=== PATIENT | female | born 1950 | race Caucasian/White ===

== ENCOUNTER 2017-01-30 13:59 | Emergency (ER) | payer OTHER ==
[~2017-01-30] VITALS: Ht 165.1 cm; Wt 83.0 kg
[~2017-01-30 13:59] MED LIST: ALBUTEROL2.5 MG/0.5 INH; HYDROCODON-ACE1 EACH PO; LOPRESSOR50 M1 PO
[2017-01-30 14:30] LABS: BASO # 0.1 10*3/uL (0.0-0.1); BASO % 0.9 % (0.0-1.0); EOS # 0.2 10*3/uL (0.0-0.4); EOS % 1.9 % (1.0-4.0); HEMOGLOBIN 16.7 g/dl (12.0-16.0); IG # 0.1 10*3/uL (0.0-0.1); LYMPH # 2.3 10*3/uL (1.3-4.4); LYMPH % 18.1 % (27.0-41.0); MEAN CELL VOLUME 88.8 fl (81.0-99.0); MEAN CORPUSCULAR HGB 29.7 pg (27.0-31.0); MEAN CORPUSCULAR HGB CONC 33.4 g/dl (33.0-37.0); MEAN PLATELET VOLUME 10.6 fl (9.6-12.3); MONO # 0.7 10*3/uL (0.1-1.0); MONO % 5.8 % (3.0-9.0); NEUT % 72.7 % (47.0-73.0); PLATELET COUNT AUTOMATED 285 10*3/uL (130-400); RED BLOOD COUNT 5.63 10*6/uL (4.10-5.10); RED CELL DISTRI WIDTH 13.7 % (0-14.5); WHITE BLOOD COUNT 12.4 10*3/uL (4.8-10.8)
[2017-01-30 14:42] LABS: BILIRUBIN NEGATIVE (NEGATIVE); BLOOD NEGATIVE (NEGATIVE); CLARITY CLEAR (CLEAR); COLOR YELLOW (YELLOW); GLUCOSE NEGATIVE (NEGATIVE); KETONE NEGATIVE (NEGATIVE); LEUKO ESTERASE NEGATIVE (NEGATIVE); NITRITE NEGATIVE (NEGATIVE); PH 5.5 (5.0-9.0); PROTEIN NEGATIVE (NEGATIVE); UROBILINOGEN 0.2 E.U./dl (0.2-1.0)
[2017-01-30 14:46] LABS: ALBUMIN 3.6 gm/dl (3.1-4.5); ALKALINE PHOSPHATASE 87 U/L (45-117); BILIRUBIN, TOTAL 0.6 mg/dl (0.2-1.0); BUN 18 mg/dl (7-24); CARBON DIOXIDE 25 mmol/L (21-32); CHLORIDE 107 mmol/L (98-107); EST GLOM FILT AFRICAN AMERICAN > 60 ml/min; GLUCOSE 113 mg/dL (65-99); POTASSIUM 3.7 mmol/L (3.5-5.1); SGOT/AST 11 IU/L (3-35); SGPT/ALT 19 U/L (12-78); SODIUM 136 mmol/L (136-145); TOTAL PROTEIN 7.7 gm/dL (6.4-8.2)
[2017-01-30 14:57] LABS: BACTERIA TRACE; EPITHELIAL CELLS 0-2; URINE REFLEX COMMENT NO (NO); WBC 0-2 wbc/hpf (0-5)
[2017-01-30] MEDS ORDERED: ANUSOL-HC25 MG R (15:41)
== END 2017-01-30 15:45 | disposition home or self-care (01) ==
LOC: ED 13:59
PROVIDERS: Nurse Practitioner Family
DX: K64.9 Unspecified hemorrhoids (principal); F17.200 Nicotine dependence, unspecified, uncomplicated; Z88.0 Allergy status to penicillin; Z90.49 Acquired absence of other specified parts of digestive tract

== ENCOUNTER → 2017-07-26 | Outpatient (CLI) | payer OTHER ==
[~2017-07-26] MED LIST changes: +ANUSOL-HC25 MG R
== END | disposition home or self-care (01) ==
LOC: US 09:48
DX: K76.0 Fatty (change of) liver, not elsewhere classified (principal); K80.20 Calculus of gallbladder without cholecystitis without obstruction; I71.4 Abdominal aortic aneurysm, without rupture

== ENCOUNTER → 2017-08-28 | Day surgery (SDC) | payer OTHER ==
[2017-08-25 10:39] LABS: BASO # 0.1 10*3/uL (0.0-0.1); BASO % 1.1 % (0.0-1.0); EOS # 0.3 10*3/uL (0.0-0.4); HEMATOCRIT 49.8 % (37.0-47.0); HEMOGLOBIN 16.2 g/dl (12.0-16.0); LYMPH # 1.9 10*3/uL (1.3-4.4); LYMPH % 23.5 % (27.0-41.0); MEAN CELL VOLUME 90.4 fl (81.0-99.0); MEAN CORPUSCULAR HGB 29.4 pg (27.0-31.0); MEAN CORPUSCULAR HGB CONC 32.5 g/dl (33.0-37.0); MONO # 0.6 10*3/uL (0.1-1.0); MONO % 7.5 % (3.0-9.0); NEUT # 5.3 10*3/uL (2.3-7.9); NEUT % 64.4 % (47.0-73.0); PLATELET COUNT AUTOMATED 216 10*3/uL (130-400); RED BLOOD COUNT 5.51 10*6/uL (4.10-5.10); RED CELL DISTRI WIDTH 12.6 % (0-14.5); WHITE BLOOD COUNT 8.3 10*3/uL (4.8-10.8)
[2017-08-25 10:51] LABS: BILIRUBIN NEGATIVE (NEGATIVE); BLOOD NEGATIVE (NEGATIVE); CLARITY CLEAR (CLEAR); COLOR YELLOW (YELLOW); GLUCOSE NEGATIVE (NEGATIVE); KETONE NEGATIVE (NEGATIVE); LEUKO ESTERASE NEGATIVE (NEGATIVE); NITRITE NEGATIVE (NEGATIVE); PH 5.5 (5.0-9.0); UROBILINOGEN 0.2 E.U./dl (0.2-1.0)
[2017-08-25 11:13] LABS: CHLORIDE 106 mmol/L (98-107); POTASSIUM 4.3 mmol/L (3.5-5.1); SODIUM 138 mmol/L (136-145)
[2017-08-25 11:17] LABS: ACT PARTIAL THROMBO TIME 25.1 SECONDS (20.8-31.5)
[2017-08-25 11:28] LABS: ALBUMIN 3.5 gm/dl (3.1-4.5); ALKALINE PHOSPHATASE 87 U/L (45-117); BILIRUBIN, DIRECT 0.1 mg/dL (0.0-0.2); BUN 8 mg/dl (7-24); CREATININE 0.59 mg/dL (0.55-1.02); SGOT/AST 13 IU/L (3-35); SGPT/ALT 12 U/L (12-78); TOTAL PROTEIN 7.4 gm/dL (6.4-8.2)
[2017-08-28] VITALS (7 sets, daily range): BP systolic 118–157; BP diastolic 58–88
[~2017-08-28] VITALS: Ht 162.5 cm; Wt 86.6 kg
[~2017-08-28] MED LIST changes: +AMLODIPINE BESYL5 MG PO; +NORCO 5-325 TA1 EACH PO; +NORCO 7.5-3251 EACH PO; +TOPROL XL100 MG PO
--- NOTE | ~2017-08-28 | O ---
[place], [place] OPERATIVE NOTE NAME: [id number] UNIT #: [id number] ROOM: DOCTOR: BRETT PATEL MD BIRTHDATE: [birth year] DOS: 08/28/2017 PREOPERATIVE DIAGNOSIS: Symptomatic gallstones. POSTOPERATIVE DIAGNOSIS: Symptomatic gallstones. PROCEDURE: Laparoscopic cholecystectomy. SURGEON: Brett Patel MD TRANSIT MAN: DONAL. ANESTHESIA: General with endotracheal intubation. INDICATIONS: This is a 66-year-old lady who is here for the above-mentioned procedure for symptomatic gallstones. The procedure and its complications were explained to the patient in detail preoperatively. Complications that were discussed included but were not limited to bleeding, infection, hematoma/seroma/abscess formation, prolonged postoperative pain, damage to underlying vital structures, inadvertent injury to the common bile duct, biloma formation, incisional hernia formation and hematoma formation. She agreed to proceed. DESCRIPTION OF PROCEDURE: After identifying the patient, the patient was brought to the operating suite and laid in the supine position. After induction of general anesthesia, the parts were then painted and draped in the usual sterile fashion and a timeout procedure was called and an incision below the umbilicus in a transverse fashion was made. The skin and the subcutaneous tissue were incised in the line of the incision. The fascia was grasped and incised vertically and 2 stay sutures with 0 Vicryl were taken. The peritoneum was entered and a 12 mm Nyla port was introduced. A pneumoperitoneum was created. Under direct vision, an epigastric incision of 10 mm and two 5 mm incisions were made in the right upper quadrant and appropriate size ports were introduced. The gallbladder was retracted superiorly and laterally. The cystic duct and the cystic artery were meticulously dissected until the critical view of safety was obtained. Each of these structures were then clipped 3 times and cut between the first and the second clip. The gallbladder was then removed from the bed of the gallbladder with the help of electrocautery and sent for histopathological diagnosis after it was removed from the peritoneal cavity with the help of a bag. Hemostasis was achieved with the help of electrocautery. Additional hemostasis was achieved by putting in a stripe of Surgicel in the liver bed. After hemostasis was confirmed, saline was used for irrigation and this was sucked away. Hemostasis was confirmed again. Thereafter, the right upper quadrant and the epigastric ports were removed and there was no bleeding seen. The umbilical port was removed and additional sutures were taken with 0 Vicryl to close the fascia. The stay sutures were tied together as well. The edges of the skin were infiltrated with 1% plain lidocaine and were approximated with the help of 4-0 Vicryl in a subcuticular running fashion. Dressings were placed in all the 4 incisions. There were no complications. Dr. Brett Patel, the attending surgeon, was present throughout the operating case. The patient [place], [place] OPERATIVE NOTE NAME: TA DOLL UNIT #: [id number] ROOM: DOCTOR: BRETT PATEL MD BIRTHDATE: [birth year] is extubated uneventfully and brought back to the recovery room in a stable fashion. Brett Patel MD CM:OPRECORD:OPERATIVE NOTE [id number] BRETT PATEL MD 08/28/17 0910 interface
== END ==
LOC: SDC 08-25 08:45
PROVIDERS: Surgery
DX: K80.10 Calculus of gallbladder with chronic cholecystitis without obstruction (principal); I10 Essential (primary) hypertension; K21.9 Gastro-esophageal reflux disease without esophagitis; F17.210 Nicotine dependence, cigarettes, uncomplicated; Z79.899 Other long term (current) drug therapy; Z90.710 Acquired absence of both cervix and uterus

== ENCOUNTER 2017-09-01 08:11 | Inpatient (IN) | payer OTHER ==
[~2017-09-01] VITALS: Ht 165.1 cm; Wt 86.8 kg
--- NOTE | ~2017-09-01 | WRIGHTHP ---
[place], [place] PATIENT HISTORY AND PHYSICAL EXAM NAME: TA DOLL [facility] #: [id number] UNIT #: [id number] ROOM: 426 DOCTOR: RASHAD LEO MD BIRTHDATE: [birth year] DOS: HISTORY OF PRESENT ILLNESS: A 66-year-old female with a past medical history of; 1. Cholecystectomy on August 28, 5 days ago, performed laparoscopically. 2. History of benign essential hypertension. 3. Rheumatic heart disease history and mitral valve prolapse. 4. GERD and esophagitis. The patient presented to the Emergency Department with right upper quadrant abdominal pain starting yesterday. The patient had done well after a laparoscopic cholecystectomy, but then she developed nausea and right upper quadrant pains and she came to the Emergency Department. The patient had chills and was sweaty. No vomiting, no diarrhea or constipation. No chest pain, no shortness of breath except for patient wears oxygen chronically for COPD and she is a smoker. REVIEW OF SYSTEMS: LUNGS: No increasing shortness of breath. GASTROINTESTINAL: The patient with nausea. CARDIOVASCULAR: No chest pain or palpitations. FAMILY HISTORY: Noncontributory. SOCIAL HISTORY: The patient smokes 1 pack of cigarettes a day for about 55 years. Denies any drug or alcohol abuse. HOME MEDICATIONS: The patient takes amlodipine 5 mg a day, metoprolol 100 mg b.i.d. at home and Vicodin as needed. ALLERGIES: KNOWN ALLERGIES TO PENICILLIN according to patient's records. PHYSICAL EXAMINATION: GENERAL: Alert and oriented x 3, in no visible distress, moderately obese. GASTROINTESTINAL: She has some abdominal distention and abdominal discomfort all over with right upper quadrant tenderness. No rigidity, guarding or rebound tenderness. No signs of peritonitis. LABORATORY DATA: Ultrasound of the liver showing no biliary dilatation and diffuse hepatic steatosis. CT scan of the abdomen showing cholecystectomy, possible seroma versus abscess, biliary ductal dilatation with a non-radiopaque stone measuring up to 8 mm, severe hepatomegaly. Chest x-ray showing COPD. White cell count elevated to 15,000, albumin level low at 2.8. IMPRESSION: 1. The patient is presenting with possible abscess at the site of cholecystectomy 5 days earlier with leukocytosis and right upper quadrant pains which have been controlled with antibiotics and intravenous Dilaudid. The pain has slightly improved today as compared to yesterday. There is no liver enzyme elevation except for some elevation of bilirubin to 1.9. Dr. Patel, this [place], [place] PATIENT HISTORY AND PHYSICAL EXAM NAME: TA DOLL UNIT #: [id number] ROOM: 426 DOCTOR: AHMET DESOUZA,RASHAD Day BIRTHDATE: [birth year] surgeon is on consult and he is recommending observation and following blood count for now. The patient is refusing gastrointestinal consult with Dr. Medrano. I will consult with infectious disease specialist for their opinion and help with management. 2. Advanced centrilobular emphysema with chronic respiratory failure and oxygen dependence. We will keep the patient on bronchodilators, oxygen and watch her closely. The patient is ambulating to the bathroom. 3. Leukocytosis, which is postop. We will watch for white cell counts either coming down or going up with intravenous antibiotics. 4. The patient has recorded ALLERGIES TO PENICILLIN, but she has not shown any adverse reaction to piperacillin given by Dr. Patel to this patient. I will make Dr. Patel aware of this issue about her recorded ALLERGY TO PENICILLIN in the past and discussed it with the patient's nurse. 5. Benign essential hypertension with controlled blood pressures. The patient remains on amlodipine and metoprolol. RASHAD LEO MD CM:HISPHYS:PATIENT HISTORY AND PHYSICAL EXAMINATION [id number] RASHAD LEO MD 09/02/17 2002 interface
--- NOTE | ~2017-09-01 | EKG ---
[place], [place] ELECTROCARDIOGRAM REPORT NAME: TA DOLL UNIT #: [id number] ROOM: 426 DOCTOR: MATTIE DESOUZA,ANAM BIRTHDATE: [birth year] DOS: 09/01/2017 TIME: 8:35 a.m. IMPRESSION: 1. Sinus rhythm. 2. Left axis deviation. 3. Poor R-wave progression. ANAM PHELPS MD CM:EKGRPT:ELECTROCARDIOGRAM REPORT [id number] ANAM PHELPS MD
--- NOTE | ~2017-09-01 | PR ---
[place], [place] PROGRESS NOTE NAME: TA DOLL UNIT #: [id number] ROOM: 426 DOCTOR: RASHAD LEO MD BIRTHDATE: [birth year] DOS: 09/03/2017 SUBJECTIVE: The patient is feeling much better, says she is hardly requiring pain medication anymore. OBJECTIVE: GENERAL APPEARANCE: The patient is alert and oriented x 3, in no visible distress. VITAL SIGNS: Blood pressure 152/95, heart rate 63 beats per minute, breathing 20 times per minute, temperature 98.4 degrees Fahrenheit. HEENT AND NECK: Exam within normal limits. CARDIOVASCULAR SYSTEM: Heart rate is regular in rate and rhythm. S1 and S2 normally audible. LUNGS: Clear to auscultation. ABDOMEN: Soft, nontender. No obvious organomegaly. Bowel sounds are present. EXTREMITIES: Without significant cyanosis or edema. IMPRESSION: 1. The patient with acute right upper quadrant pains 5 days after cholecystectomy with abscess, suspected on CT scan of the abdomen and leukocytosis with criteria of sepsis which included leukocytosis, chills, rigors, pain is all improving. The patient's nausea is also getting better. 2. Advanced centrilobular emphysema and chronic respiratory failure with oxygen dependence. The patient on bronchodilators. 3. Postoperative leukocytosis and related to sepsis. White cell counts are still staying around 14-15,000 despite of use of antibiotics. ID consult is pending. 4. Benign essential hypertension with controlled blood pressures. RASHAD LEO MD CM:PNTRANS [id number] RASHAD LEO MD 09/03/17 1024 interface
[~2017-09-01 08:11] MED LIST changes: -NORCO 7.5-3251 EACH PO; -TOPROL XL100 MG PO
[2017-09-01 08:15] VITALS: BP 123/82
[2017-09-01] MEDS ORDERED: NORCO 7.5-3251 EACH PO (08:21)
[2017-09-01 08:57] LABS: BASO # 0.1 10*3/uL (0.0-0.1); BASO % 0.9 % (0.0-1.0); EOS # 0.3 10*3/uL (0.0-0.4); EOS % 1.7 % (1.0-4.0); HEMATOCRIT 51.8 % (37.0-47.0); HEMOGLOBIN 16.9 g/dl (12.0-16.0); LYMPH # 1.9 10*3/uL (1.3-4.4); LYMPH % 13.1 % (27.0-41.0); MEAN CELL VOLUME 90.4 fl (81.0-99.0); MEAN CORPUSCULAR HGB 29.5 pg (27.0-31.0); MEAN CORPUSCULAR HGB CONC 32.6 g/dl (33.0-37.0); MEAN PLATELET VOLUME 11.2 fl (9.6-12.3); MONO # 1.1 10*3/uL (0.1-1.0); MONO % 7.6 % (3.0-9.0); NEUT # 11.3 10*3/uL (2.3-7.9); NEUT % 75.9 % (47.0-73.0); PLATELET COUNT AUTOMATED 222 10*3/uL (130-400); RED BLOOD COUNT 5.73 10*6/uL (4.10-5.10); RED CELL DISTRI WIDTH 12.5 % (0-14.5); WHITE BLOOD COUNT 14.8 10*3/uL (4.8-10.8)
--- NOTE | 2017-09-01 09:03 | NUR ---
PATIENT ADVISED URINE SAMPLE IS REQUESTED.
[2017-09-01 09:13] LABS: ALBUMIN 3.3 gm/dl (3.1-4.5); ALKALINE PHOSPHATASE 95 U/L (45-117); BUN 10 mg/dl (7-24); CHLORIDE 101 mmol/L (98-107); CREATININE 0.72 mg/dL (0.55-1.02); LIPASE 61 U/L (73-393); POTASSIUM 4.2 mmol/L (3.5-5.1); SGOT/AST 11 IU/L (3-35); SGPT/ALT 18 U/L (12-78); SODIUM 135 mmol/L (136-145); TOTAL PROTEIN 7.6 gm/dL (6.4-8.2)
[2017-09-01 09:14] LABS: TROPONIN I < 0.015 ng/ml (<0.045)
--- NOTE | 2017-09-01 09:26 | NUR ---
PATIENT TO CT AT THIS TIME.
--- NOTE | 2017-09-01 09:47 | NUR ---
PATIENT COMPLAINING OF INCREASED PAIN.
--- NOTE | 2017-09-01 09:59 | NUR ---
PATIENT MEDICATED FOR PAIN. REPORTS 07/08 AT THIS TIME.
[2017-09-01 11:28] VITALS: BP 132/76
[2017-09-01 12:00] VITALS: BP 144/72
[2017-09-01] MEDS ORDERED: TOPROL XL100 MG PO (12:15)
--- NOTE | 2017-09-01 12:36 | NUR ---
MSADMTime: N A 66 year old admitted to 4E under services of DR. AHMET DESOUZA,RASHAD Hernandez Pt. arrived via bed from ER. Chief complaint: ABDOMINAL PAIN. AUSTEN SOLANO
--- NOTE | 2017-09-01 14:51 | NUR ---
NORCO GIVEN FOR C/O ABDOMINAL PAIN. RATES 6/10 ON PAIN SCALE. WILL MONITOR.
[2017-09-01 16:00] VITALS: BP 153/88
--- NOTE | 2017-09-01 16:00 | NUR ---
NORCO NOT HELPING PER PT. WILL NOTIFY DOCTOR.
--- NOTE | 2017-09-01 16:43 | NUR ---
DILAUDID GIVEN FOR C/O ABDOMINAL PAIN. RATES 10/10 ON PAIN SCALE. WILL MONITOR.
--- NOTE | 2017-09-01 17:50 | NUR ---
ROLO HELPING PER PT.
[2017-09-01 20:00] VITALS: BP 127/103
[2017-09-01 21:58] LABS: BILIRUBIN NEGATIVE (NEGATIVE); BLOOD TRACE-INTACT (NEGATIVE); CLARITY SL CLOUDY (CLEAR); COLOR YELLOW (YELLOW); GLUCOSE NEGATIVE (NEGATIVE); KETONE NEGATIVE (NEGATIVE); LEUKO ESTERASE NEGATIVE (NEGATIVE); NITRITE NEGATIVE (NEGATIVE); PH 5.5 (5.0-9.0); UROBILINOGEN 0.2 E.U./dl (0.2-1.0)
[2017-09-01 22:10] LABS: BACTERIA TRACE; RBC 0-2 rbc/hpf (0-2); WBC 0-2 wbc/hpf (0-5)
[2017-09-01 22:50] VITALS: BP 133/84
--- NOTE | 2017-09-01 23:30 | NUR ---
PRN PAIN MED EFFECTIVE FOR PAIN RELIEF. PT RESTING QUIETLY IN BED AT THIS TIME.
[2017-09-02] VITALS: BP 131/91
--- NOTE | 2017-09-02 05:05 | NUR ---
24 HR chart check completed.
[2017-09-02 06:46] LABS: BASO # 0.1 10*3/uL (0.0-0.1); BASO % 0.4 % (0.0-1.0); EOS # 0.1 10*3/uL (0.0-0.4); EOS % 0.5 % (1.0-4.0); HEMOGLOBIN 15.7 g/dl (12.0-16.0); LYMPH # 1.1 10*3/uL (1.3-4.4); LYMPH % 7.1 % (27.0-41.0); MEAN CELL VOLUME 90.4 fl (81.0-99.0); MEAN CORPUSCULAR HGB 30.2 pg (27.0-31.0); MEAN CORPUSCULAR HGB CONC 33.4 g/dl (33.0-37.0); MEAN PLATELET VOLUME 10.8 fl (9.6-12.3); MONO # 1.1 10*3/uL (0.1-1.0); MONO % 7.4 % (3.0-9.0); NEUT # 12.7 10*3/uL (2.3-7.9); NEUT % 84.1 % (47.0-73.0); PLATELET COUNT AUTOMATED 210 10*3/uL (130-400); RED CELL DISTRI WIDTH 12.5 % (0-14.5); WHITE BLOOD COUNT 15.1 10*3/uL (4.8-10.8)
[2017-09-02 07:02] LABS: ALBUMIN 2.8 gm/dl (3.1-4.5); ALKALINE PHOSPHATASE 93 U/L (45-117); BUN 9 mg/dl (7-24); CHLORIDE 101 mmol/L (98-107); CREATININE 0.54 mg/dL (0.55-1.02); POTASSIUM 4.3 mmol/L (3.5-5.1); SGOT/AST 24 IU/L (3-35); SGPT/ALT 27 U/L (12-78); SODIUM 136 mmol/L (136-145); TOTAL PROTEIN 6.7 gm/dL (6.4-8.2)
[2017-09-02 08:00] VITALS: BP 122/79
--- NOTE | 2017-09-02 08:30 | NUR ---
Disability Representative in to talk to patient. Patient states lives at HOME ALONE with . There are 17 steps in the home. Physician: DR CABEZAS Pharmacy: [facility] services: NONE Patient's level of ADLs: INDEPENDENT Patient has working utilities: YES DME: [facility] Follow-up physician's appointment after d/c: PREFERS TO MAKE HER OWN APPT Does patient want to access PORTAL?: Discharge plan HOME. CHRIS PARRA
--- NOTE | 2017-09-02 08:45 | NUR ---
PT. CURRENTLY RESTING IN BED WATCHING TV WITH NO C/O OR DISTRESS NOTED AT THIS TIME. BED IS LOW, WHEELS ARE LOCKED, CALL LIGHT IN REACH AND HOB ELEVATED. [place] ATTACHED DELIVERING 2L, ECCYMOSIS NOTED TO AREAS OF LAPROSCOPIC ANTIONE. NO DRAINAGE NOTED. SEE SHIFT ASSESSMENT.
[2017-09-02 12:00] VITALS: BP 127/78
--- NOTE | 2017-09-02 12:34 | NUR ---
PRN DILAUDID GIVEN FOR PT. C/O RUQ ABDOMINAL PAIN, WILL MONITOR EFFECT.
--- NOTE | 2017-09-02 13:00 | NUR ---
PRN DILAUDID EFFECTIVE PER PT. CALL LIGHT IS WITHIN REACH AND RESPERS ARE EASY AND REGULAR.
--- NOTE | 2017-09-02 14:04 | NUR ---
DR. ALSTON CONTACTED IN REGARDS TO PT. US OF GALLBLADDER RESULTS, NO NEW ORDERS.
[2017-09-02 16:00] VITALS: BP 130/77
[2017-09-02 20:00] VITALS: BP 141/90
--- NOTE | 2017-09-02 20:01 | NUR ---
MEDICATED WITH PRN DILAUDID FOR C/O RLQ ABDOMINAL PAIN. RATES 03/08. WILL MONITOR FOR EFFECTIVENESS.
--- NOTE | 2017-09-02 21:45 | NUR ---
PER PATIENT, EARLIER DILAUDID EFFECTIVE
[2017-09-03] VITALS: BP 145/91
--- NOTE | 2017-09-03 02:02 | NUR ---
MEDICATED WITH PRN DILAUDID FOR C/O ABDOMINAL PAIN. RATES 04/07.
--- NOTE | 2017-09-03 03:09 | NUR ---
EARLIER DILAUDID APPEARS TO BE EFFECTIVE, PT SLEEPING. NO SIGNS OF DISTRESS NOTED. CM INTACT. CALL LIGHT IN REACH. WILL CONTINUE TO MONITOR.
[2017-09-03 06:57] LABS: BASO # 0.1 10*3/uL (0.0-0.1); BASO % 0.5 % (0.0-1.0); EOS # 0.1 10*3/uL (0.0-0.4); EOS % 0.6 % (1.0-4.0); LYMPH # 0.9 10*3/uL (1.3-4.4); MEAN CELL VOLUME 89.7 fl (81.0-99.0); MEAN CORPUSCULAR HGB 30.3 pg (27.0-31.0); MEAN CORPUSCULAR HGB CONC 33.8 g/dl (33.0-37.0); MEAN PLATELET VOLUME 11.2 fl (9.6-12.3); MONO # 0.9 10*3/uL (0.1-1.0); MONO % 6.1 % (3.0-9.0); NEUT # 12.7 10*3/uL (2.3-7.9); NEUT % 86.1 % (47.0-73.0); PLATELET COUNT AUTOMATED 250 10*3/uL (130-400); RED BLOOD COUNT 5.94 10*6/uL (4.10-5.10); RED CELL DISTRI WIDTH 12.3 % (0-14.5); WHITE BLOOD COUNT 14.7 10*3/uL (4.8-10.8)
[2017-09-03 07:00] LABS: BUN 12 mg/dl (7-24); CHLORIDE 98 mmol/L (98-107); CREATININE 0.62 mg/dL (0.55-1.02); POTASSIUM 4.2 mmol/L (3.5-5.1); SODIUM 134 mmol/L (136-145)
[2017-09-03 07:01] LABS: HEMATOCRIT 53.3 % (37.0-47.0)
[2017-09-03 08:00] VITALS: BP 152/95
[2017-09-03 08:14] LABS: SGOT/AST 22 IU/L (3-35); SGPT/ALT 28 U/L (12-78)
[2017-09-03 09:38] LABS: BILIRUBIN, DIRECT 0.9 mg/dL (0.0-0.2)
[2017-09-03 12:00] VITALS: BP 132/81
[2017-09-03 16:00] VITALS: BP 132/92
--- NOTE | 2017-09-03 16:51 | NUR ---
MIXER CRANE OPERATOR PHONED ONE CALL ALLEGHENY TO CHECK ON A BED FOR TRANSFER WITH ONE NOT AVAILABLE YET.
--- NOTE | 2017-09-03 17:09 | NUR ---
PT MEDICATED AT THIS TIME WITH PRN DILAUDID FOR C/O RIGHT SIDED ABDOMINAL PAIN. PT RATES PAIN 05/08. WILL REACCESS.
[2017-09-03 20:00] VITALS: BP 131/94
--- NOTE | 2017-09-03 22:21 | NUR ---
MEDICATED WITH PRN NORCO ORDERED FOR C/O ABDOMINAL PAIN RATED AN 8
--- NOTE | 2017-09-03 22:30 | NUR ---
NURSE TO NURSE REPORT GIVEN TO [facility] AT THIS TIME. PATIENT DISCHARGED AND LEFT VIA AMBULANCE. IV HEP LOCKED WITH NS. HEART MONITOR REMOVED AND RETURNED TO FLOOR. PATIENT VERBALIZED UNDERSTANDING OF TRANSFER INSTRUCTIONS.
== END 2017-09-03 22:30 | disposition short-term general hospital (02) | DRG 862 ==
LOC: ED 08:11 → 4E 11:19 → EDHOLD 11:19 → 4E 11:25
PROVIDERS: Emergency Medicine; Surgery; ADMIT Internal Medicine
DX: T81.4XXA Infection following a procedure, initial encounter (principal); A41.9 Sepsis, unspecified organism; J96.10 Chronic respiratory failure, unspecified whether with hypoxia or hypercapnia; J43.2 Centrilobular emphysema; Z99.81 Dependence on supplemental oxygen; L02.211 Cutaneous abscess of abdominal wall; F17.210 Nicotine dependence, cigarettes, uncomplicated; I10 Essential (primary) hypertension; Y83.6 Removal of other organ (partial) (total) as the cause of abnormal reaction of the patient, or of later complication, without mention of misadventure at the time of the procedure; K21.0 Gastro-esophageal reflux disease with esophagitis; K59.00 Constipation, unspecified; Z90.49 Acquired absence of other specified parts of digestive tract; Z79.899 Other long term (current) drug therapy; Z88.0 Allergy status to penicillin; Y92.89 Other specified places as the place of occurrence of the external cause

== ENCOUNTER → 2017-10-24 | Outpatient (CLI) | payer OTHER ==
[~2017-10-24] MED LIST changes: +NORCO 7.5-3251 EACH PO; +TOPROL XL100 MG PO
== END | disposition home or self-care (01) ==
LOC: CT 00:57
DX: R10.33 Periumbilical pain (principal); R18.8 Other ascites; R11.0 Nausea; Z90.49 Acquired absence of other specified parts of digestive tract

== ENCOUNTER → 2018-02-11 | Outpatient (CLI) | payer OTHER ==
[2018-02-11 13:31] LABS: CREATININE 0.73 mg/dL (0.55-1.02)
== END ==
LOC: LAB 12:41 → MRI 12:41
PROVIDERS: Radiology Diagnostic Radiology
DX: R51 Headache (principal); R42 Dizziness and giddiness; H53.8 Other visual disturbances; H91.93 Unspecified hearing loss, bilateral

== ENCOUNTER → 2018-04-08 | Outpatient (CLI) | payer OTHER ==
--- NOTE | ~2018-04-08 | HM ---
[place], [place] HOLTER MONITOR REPORT NAME: TA DOLL UNIT #: [id number] ROOM: DOCTOR: JAY CABEZAS MD BIRTHDATE: [birth year] DOS: 04/08/2018 REASON: Testing for evaluation of previous history of AFib. The patient remained in sinus rhythm with average heart rate of 74. Maximum heart rate was 105. The patient's rhythm was mostly sinus though occasional bradycardia, heart rate in the 40s, only ventricular ectopy noted was couplets and PVCs. Supraventricular activity was mostly PACs, no AFib was seen. JAY CABEZAS MD CM:HOLTER:HOLTER MONITOR REPORT [id number] JAY CABEZAS MD
== END | disposition home or self-care (01) ==
LOC: CARD 09:00
DX: I48.91 Unspecified atrial fibrillation (principal); R06.02 Shortness of breath

== ENCOUNTER → 2018-12-22 | Outpatient (CLI) | payer OTHER | END | disposition home or self-care (01) | LOC: CT 12-15 08:00 | DX: J43.9 Emphysema, unspecified (principal); I71.4 Abdominal aortic aneurysm, without rupture; J38.3 Other diseases of vocal cords; Z90.49 Acquired absence of other specified parts of digestive tract ==

== ENCOUNTER → 2019-05-13 | Outpatient (CLI) | payer OTHER | END | disposition home or self-care (01) | LOC: CT 12:20 | DX: I71.4 Abdominal aortic aneurysm, without rupture (principal); I72.2 Aneurysm of renal artery; N20.0 Calculus of kidney; K76.89 Other specified diseases of liver; R19.7 Diarrhea, unspecified; I70.90 Unspecified atherosclerosis ==

== ENCOUNTER → 2019-09-03 | Outpatient (CLI) | payer OTHER | END | disposition home or self-care (01) | LOC: RAD 07:54 | DX: M25.512 Pain in left shoulder (principal) ==

== ENCOUNTER → 2019-12-06 | Outpatient (CLI) | payer OTHER | END | disposition home or self-care (01) | LOC: CT 08:18 | DX: I71.9 Aortic aneurysm of unspecified site, without rupture (principal) ==

== ENCOUNTER → 2020-03-02 | Outpatient (CLI) | payer OTHER ==
[2020-03-02 13:47] LABS: BASO # 0.1 10*3/uL (0.0-0.1); BASO % 0.9 % (0.0-1.0); EOS # 0.4 10*3/uL (0.0-0.4); EOS % 3.2 % (1.0-4.0); HEMATOCRIT 51.8 % (37.0-47.0); LYMPH % 15.8 % (27.0-41.0); MEAN CORPUSCULAR HGB 29.8 pg (27.0-31.0); MEAN CORPUSCULAR HGB CONC 31.7 g/dl (33.0-37.0); MONO # 1.1 10*3/uL (0.1-1.0); MONO % 9.2 % (3.0-9.0); NEUT # 8.7 10*3/uL (2.3-7.9); NEUT % 70.1 % (47.0-73.0); PLATELET COUNT AUTOMATED 241 10*3/uL (130-400); RED BLOOD COUNT 5.51 10*6/uL (4.10-5.10); RED CELL DISTRI WIDTH 12.7 % (0-14.5); WHITE BLOOD COUNT 12.3 10*3/uL (4.8-10.8)
[2020-03-02 14:22] LABS: CHLORIDE 104 mmol/L (98-107); POTASSIUM 4.5 mmol/L (3.5-5.1); SODIUM 137 mmol/L (136-145)
[2020-03-02 14:28] LABS: VITAMIN D, 25-HYDROXY 42.3 ng/mL (30-100)
[2020-03-02 14:32] LABS: ALBUMIN 3.6 gm/dl (3.1-4.5); ALKALINE PHOSPHATASE 97 U/L (45-117); BUN 15 mg/dl (7-24); CHOLESTEROL 153 mg/dL (<200); FREE T4 1.13 ng/dl (0.76-1.46); HDL CHOLESTEROL 56 mg/dl (40-60); LDL CHOLESTEROL 82 mg/dL (9-159); SGOT/AST 12 IU/L (3-35); SGPT/ALT 20 U/L (12-78); TOTAL PROTEIN 7.5 gm/dL (6.4-8.2); TRIGLYCERIDES 77 mg/dl (<150); VLDL CHOLESTEROL 15 mg/dL (6-40)
== END | disposition home or self-care (01) ==
LOC: LAB 12:46 → RAD 13:30 → MAMMO 14:00
PROVIDERS: Internal Medicine
DX: Z12.31 Encounter for screening mammogram for malignant neoplasm of breast (principal); Z00.00 Encounter for general adult medical examination without abnormal findings; M85.89 Other specified disorders of bone density and structure, multiple sites; E78.2 Mixed hyperlipidemia; I10 Essential (primary) hypertension; E55.9 Vitamin D deficiency, unspecified; Z78.0 Asymptomatic menopausal state

== ENCOUNTER → 2020-07-14 | Outpatient (CLI) | payer OTHER | END | disposition home or self-care (01) | LOC: LAB 08:13 | PROVIDERS: ATTEND Internal Medicine Critical Care Medicine | DX: R53.83 Other fatigue (principal); D64.9 Anemia, unspecified ==

== ENCOUNTER → 2020-11-06 | Outpatient (CLI) | payer OTHER | END | disposition home or self-care (01) | LOC: RAD 08:03 | PROVIDERS: ATTEND Internal Medicine | DX: R06.02 Shortness of breath (principal) ==

== ENCOUNTER → 2021-01-11 | Outpatient (CLI) | payer OTHER | END | disposition home or self-care (01) | LOC: US 01-08 11:00 | PROVIDERS: ATTEND Internal Medicine | DX: R42 Dizziness and giddiness (principal) ==

== ENCOUNTER → 2021-02-14 | Outpatient (CLI) | payer OTHER | END | disposition home or self-care (01) | LOC: RAD 07:55 | PROVIDERS: ATTEND Internal Medicine | DX: M19.071 Primary osteoarthritis, right ankle and foot (principal); M25.871 Other specified joint disorders, right ankle and foot ==

== ENCOUNTER → 2021-03-05 | Outpatient (CLI) | payer OTHER | END | disposition home or self-care (01) | LOC: MRI 10:41 | PROVIDERS: ATTEND Internal Medicine | DX: S96.811A Strain of other specified muscles and tendons at ankle and foot level, right foot, initial encounter (principal); M20.11 Hallux valgus (acquired), right foot; M19.071 Primary osteoarthritis, right ankle and foot; M72.2 Plantar fascial fibromatosis; R60.0 Localized edema; X58.XXXA Exposure to other specified factors, initial encounter; Y93.89 Activity, other specified; Y92.89 Other specified places as the place of occurrence of the external cause; Y99.8 Other external cause status ==

== ENCOUNTER → 2021-04-18 | Outpatient (CLI) | payer OTHER | END | disposition home or self-care (01) | LOC: US 11:50 | PROVIDERS: ATTEND Internal Medicine | DX: I70.0 Atherosclerosis of aorta (principal); Q25.46 Tortuous aortic arch; R60.0 Localized edema ==

== ENCOUNTER → 2021-08-21 | Outpatient (CLI) | payer OTHER | END | disposition home or self-care (01) | LOC: CARD 08-07 14:00 → CT 08-07 15:00 → CARD 12:23 | PROVIDERS: ATTEND Internal Medicine | DX: R06.02 Shortness of breath (principal) ==

== ENCOUNTER → 2021-12-31 | Outpatient (CLI) | payer OTHER | END | disposition home or self-care (01) | LOC: RAD 08:57 → MAMMO 09:30 | PROVIDERS: ATTEND Internal Medicine | DX: Z12.31 Encounter for screening mammogram for malignant neoplasm of breast (principal); M81.0 Age-related osteoporosis without current pathological fracture; M85.88 Other specified disorders of bone density and structure, other site ==

== ENCOUNTER → 2022-08-06 | Outpatient (CLI) | payer OTHER | END | disposition home or self-care (01) | LOC: RAD 08-01 08:00 | PROVIDERS: ATTEND Internal Medicine | DX: K22.9 Disease of esophagus, unspecified (principal) ==

== ENCOUNTER → 2022-10-25 | Outpatient (CLI) | payer OTHER ==
[~2022-10-25] MED LIST changes: +ASPIRIN ADULT L81 M1 PO; +ATORVASTATIN CA10 M1 PO; +COZAAR25 M1 PO; +NEURONTIN300 MG PO; +OYSTER SHELL PO
== END | disposition home or self-care (01) ==
LOC: CARD 00:52
PROVIDERS: ATTEND Internal Medicine
DX: R07.9 Chest pain, unspecified (principal); I10 Essential (primary) hypertension

== ENCOUNTER → 2022-12-26 | Outpatient (CLI) | payer OTHER | END | disposition home or self-care (01) | LOC: CT 00:34 | PROVIDERS: ATTEND Internal Medicine | DX: I71.43 Infrarenal abdominal aortic aneurysm, without rupture (principal); K57.32 Diverticulitis of large intestine without perforation or abscess without bleeding; K76.89 Other specified diseases of liver ==

== ENCOUNTER → 2023-02-18 | Outpatient (CLI) | payer OTHER ==
[2023-02-18 09:56] LABS: BASO # 0.1 10*3/uL (0.0-0.1); BASO % 0.9 % (0.0-1.0); EOS # 0.3 10*3/uL (0.0-0.4); EOS % 3.1 % (1.0-4.0); HEMATOCRIT 51.6 % (37.0-47.0); LYMPH # 1.3 10*3/uL (1.3-4.4); LYMPH % 13.3 % (27.0-41.0); MEAN CELL VOLUME 92.3 fl (81.0-99.0); MEAN CORPUSCULAR HGB 29.9 pg (27.0-31.0); MEAN CORPUSCULAR HGB CONC 32.4 g/dl (33.0-37.0); MEAN PLATELET VOLUME 11.3 fl (9.6-12.3); MONO # 0.9 10*3/uL (0.1-1.0); MONO % 9.3 % (3.0-9.0); NEUT # 6.9 10*3/uL (2.3-7.9); NEUT % 72.2 % (47.0-73.0); PLATELET COUNT AUTOMATED 200 10*3/uL (130-400); RED BLOOD COUNT 5.59 10*6/uL (4.10-5.10); RED CELL DISTRI WIDTH 13.2 % (0-14.5); WHITE BLOOD COUNT 9.6 10*3/uL (4.8-10.8)
[2023-02-18 10:35] LABS: ALKALINE PHOSPHATASE 79 U/L (46-116); BUN 14 mg/dl (9-23); CHLORIDE 103 mmol/L (98-107); CHOLESTEROL 157 mg/dL (<200); FREE T4 1.19 ng/dl (0.89-1.76); LDL CHOLESTEROL 80 mg/dL (9-159); POTASSIUM 4.5 mmol/L (3.4-5.1); SGPT/ALT 12 U/L (10-49); THYROID STIM HORMONE (HS) 1.969 uIU/ml (0.550-4.780); TRIGLYCERIDES 90 mg/dl (<150)
[2023-02-18 10:51] LABS: VITAMIN D, 25-HYDROXY 59.7 ng/mL (30-100)
== END | disposition home or self-care (01) ==
LOC: LAB 09:01
PROVIDERS: ATTEND Internal Medicine
DX: E11.9 Type 2 diabetes mellitus without complications (principal); I10 Essential (primary) hypertension; E78.2 Mixed hyperlipidemia; E55.9 Vitamin D deficiency, unspecified

== ENCOUNTER → 2023-03-27 | Outpatient (CLI) | payer OTHER | END | disposition home or self-care (01) | LOC: RAD 09:57 | PROVIDERS: ATTEND Internal Medicine | DX: R07.9 Chest pain, unspecified (principal) ==

== ENCOUNTER → 2023-04-22 | Outpatient (CLI) | payer OTHER | END | disposition home or self-care (01) | LOC: RAD 08:26 | PROVIDERS: ATTEND Internal Medicine | DX: M16.11 Unilateral primary osteoarthritis, right hip (principal) ==

== ENCOUNTER → 2023-05-14 | Outpatient (CLI) | payer OTHER | END | disposition home or self-care (01) | LOC: CT 09:22 | PROVIDERS: ATTEND Internal Medicine | DX: I71.40 Abdominal aortic aneurysm, without rupture, unspecified (principal); R93.89 Abnormal findings on diagnostic imaging of other specified body structures ==

== ENCOUNTER → 2023-06-12 | Outpatient (CLI) | payer OTHER | END | disposition home or self-care (01) | LOC: MRI 00:06 | PROVIDERS: ATTEND Orthopaedic Surgery | DX: M47.27 Other spondylosis with radiculopathy, lumbosacral region (principal); M51.16 Intervertebral disc disorders with radiculopathy, lumbar region; M70.61 Trochanteric bursitis, right hip ==

== ENCOUNTER → 2023-06-26 | Outpatient (CLI) | payer OTHER | END | disposition home or self-care (01) | LOC: MRI 06-12 15:00 | PROVIDERS: ATTEND Orthopaedic Surgery | DX: M47.814 Spondylosis without myelopathy or radiculopathy, thoracic region (principal); M51.24 Other intervertebral disc displacement, thoracic region; M54.16 Radiculopathy, lumbar region; M70.61 Trochanteric bursitis, right hip; M48.04 Spinal stenosis, thoracic region ==

== ENCOUNTER → 2023-07-04 | Outpatient (CLI) | payer OTHER | END | disposition home or self-care (01) | LOC: RAD 13:30 | PROVIDERS: ATTEND Internal Medicine | DX: R05.9 Cough, unspecified (principal) ==

== ENCOUNTER → 2023-08-18 | Outpatient (CLI) | payer OTHER | END | disposition home or self-care (01) | LOC: RAD 09:09 | PROVIDERS: ATTEND Internal Medicine | DX: M19.071 Primary osteoarthritis, right ankle and foot (principal); M79.89 Other specified soft tissue disorders; M20.11 Hallux valgus (acquired), right foot; M77.31 Calcaneal spur, right foot ==

== ENCOUNTER 2023-12-02 15:19 | Emergency (ER) | payer OTHER ==
[~2023-12-02] VITALS: Ht 162.5 cm; Wt 106.6 kg
[~2023-12-02 15:19] MED LIST changes: +CEFUROXIME AXE250 MG PO; +ELIQUIS5 M1 PO; +PREDNISONE20 M1 PO; +PREDNISONE5 MG PO; +PROTONIX40 MG PO; +Vibra-Tab100 MG PO
[2023-12-02 16:32] LABS: BASO # 0.1 10*3/uL (0.0-0.1); BASO % 0.9 % (0.0-1.0); EOS # 0.2 10*3/uL (0.0-0.4); EOS % 1.3 % (1.0-4.0); HEMATOCRIT 52.2 % (37.0-47.0); LYMPH # 2.3 10*3/uL (1.3-4.4); LYMPH % 17.9 % (27.0-41.0); MEAN CELL VOLUME 91.6 fl (81.0-99.0); MEAN CORPUSCULAR HGB 28.8 pg (27.0-31.0); MEAN CORPUSCULAR HGB CONC 31.4 g/dl (33.0-37.0); MEAN PLATELET VOLUME 10.9 fl (9.6-12.3); MONO # 1.4 10*3/uL (0.1-1.0); MONO % 10.7 % (3.0-9.0); NEUT # 8.5 10*3/uL (2.3-7.9); NEUT % 66.9 % (47.0-73.0); PLATELET COUNT AUTOMATED 239 10*3/uL (130-400); RED CELL DISTRI WIDTH 14.3 % (0-14.5); WHITE BLOOD COUNT 12.7 10*3/uL (4.8-10.8)
[2023-12-02 16:46] LABS: ACT PARTIAL THROMBO TIME 29.4 SECONDS (20.0-32.1)
[2023-12-02 16:53] LABS: ALKALINE PHOSPHATASE 69 U/L (46-116); BUN 12 mg/dl (9-23); CHLORIDE 103 mmol/L (98-107); LIPASE 26 U/L (12-53); POTASSIUM 4.3 mmol/L (3.4-5.1); SGPT/ALT 13 U/L (5-49); TOTAL PROTEIN 6.8 gm/dL (6.0-8.0)
[2023-12-02 17:41] LABS: BILIRUBIN Negative (Negative); BLOOD Negative (Negative); CLARITY Clear (Clear); COLOR Yellow (Yellow); GLUCOSE Negative (Negative); KETONE Negative (Negative); LEUKO ESTERASE Trace (Negative); NITRITE Negative (Negative); PH 5.5 (4.5-8.0); SPECIFIC GRAVITY <= 1.005 (1.001-1.030); UROBILINOGEN 0.2 E.U./dl (0.0-1.0)
[2023-12-02 17:53] LABS: BACTERIA TRACE
[2023-12-02] MEDS ORDERED: Albuterol Sulf/Ipratropium 3 ML VIAL NEB ONE (20:40)
[2023-12-02] MEDS ORDERED: Midazolam Hydrochloride 2 MG/2 ML VIAL IV ONE (22:15)
== END 2023-12-02 22:40 | disposition short-term general hospital (02) ==
LOC: ED 15:19
PROVIDERS: Emergency Medicine
DX: I71.43 Infrarenal abdominal aortic aneurysm, without rupture (principal); M54.9 Dorsalgia, unspecified; I10 Essential (primary) hypertension; K21.9 Gastro-esophageal reflux disease without esophagitis; E78.00 Pure hypercholesterolemia, unspecified; I48.91 Unspecified atrial fibrillation; Z88.0 Allergy status to penicillin; Z88.8 Allergy status to other drugs, medicaments and biological substances; Z90.49 Acquired absence of other specified parts of digestive tract; Z90.89 Acquired absence of other organs; Z90.710 Acquired absence of both cervix and uterus; Z98.890 Other specified postprocedural states; Z72.0 Tobacco use

== ENCOUNTER → 2023-12-09 | Outpatient (CLI) | payer OTHER | END | disposition home or self-care (01) | LOC: CT 10:26 | PROVIDERS: ATTEND Internal Medicine Critical Care Medicine | DX: J43.9 Emphysema, unspecified (principal); R40.0 Somnolence; G25.81 Restless legs syndrome; Z68.38 Body mass index [BMI] 38.0-38.9, adult; G47.33 Obstructive sleep apnea (adult) (pediatric); Z91.198 Patient's noncompliance with other medical treatment and regimen for other reason; Z87.891 Personal history of nicotine dependence; K76.89 Other specified diseases of liver; I70.8 Atherosclerosis of other arteries; R91.1 Solitary pulmonary nodule ==

== ENCOUNTER → 2024-01-02 | Outpatient (CLI) | payer OTHER | END | disposition home or self-care (01) | LOC: MRI 00:38 | PROVIDERS: ATTEND Internal Medicine | DX: M67.853 Other specified disorders of tendon, right hip (principal) ==

== ENCOUNTER → 2024-04-13 | Outpatient (CLI) | payer OTHER ==
[2024-04-13 07:38] LABS: BASO # 0.1 10*3/uL (0.0-0.1); BASO % 0.9 % (0.0-1.0); EOS # 0.5 10*3/uL (0.0-0.4); EOS % 6.2 % (1.0-4.0); HEMATOCRIT 44.9 % (37.0-47.0); LYMPH # 1.2 10*3/uL (1.3-4.4); LYMPH % 16.2 % (27.0-41.0); MEAN CELL VOLUME 90.9 fl (81.0-99.0); MEAN CORPUSCULAR HGB 29.6 pg (27.0-31.0); MEAN CORPUSCULAR HGB CONC 32.5 g/dl (33.0-37.0); MEAN PLATELET VOLUME 10.9 fl (9.6-12.3); MONO % 13.4 % (3.0-9.0); NEUT # 4.6 10*3/uL (2.3-7.9); NEUT % 61.9 % (47.0-73.0); PLATELET COUNT AUTOMATED 200 10*3/uL (130-400); RED BLOOD COUNT 4.94 10*6/uL (4.10-5.10); RED CELL DISTRI WIDTH 14.6 % (0-14.5); WHITE BLOOD COUNT 7.4 10*3/uL (4.8-10.8)
[2024-04-13 08:16] LABS: ALKALINE PHOSPHATASE 71 U/L (46-116); BUN 6 mg/dl (9-23); CHLORIDE 108 mmol/L (98-107); CHOLESTEROL 134 mg/dL (<200); FREE T4 1.09 ng/dl (0.89-1.76); LDL CHOLESTEROL 64 mg/dL (9-159); POTASSIUM 4.2 mmol/L (3.4-5.1); SGPT/ALT 12 U/L (5-49); TOTAL PROTEIN 5.8 gm/dL (6.0-8.0); TRIGLYCERIDES 104 mg/dl (<150); VITAMIN D, 25-HYDROXY 49.9 ng/mL (30-100)
== END | disposition home or self-care (01) ==
LOC: LAB 07:16
PROVIDERS: ATTEND Internal Medicine
DX: Z13.228 Encounter for screening for other metabolic disorders (principal); Z13.220 Encounter for screening for lipoid disorders; Z13.1 Encounter for screening for diabetes mellitus; Z13.0 Encounter for screening for diseases of the blood and blood-forming organs and certain disorders involving the immune mechanism; Z13.21 Encounter for screening for nutritional disorder; Z13.29 Encounter for screening for other suspected endocrine disorder; Z13.6 Encounter for screening for cardiovascular disorders; Z13.89 Encounter for screening for other disorder; Z13.9 Encounter for screening, unspecified; Z79.891 Long term (current) use of opiate analgesic; I10 Essential (primary) hypertension; Z79.899 Other long term (current) drug therapy

== ENCOUNTER 2024-04-29 14:47 | Emergency (ER) | payer OTHER ==
[~2024-04-29] VITALS: Ht 165.1 cm; Wt 90.3 kg
[2024-04-29] MEDS ORDERED: Tdap Vaccine 0.5 ML SYR (Adult Vaccine) IM ONE (15:25)
[2024-04-29] MEDS ORDERED: Bacitracin Zinc 14 GM TUBE T ONE (16:25)
== END 2024-04-29 16:37 | disposition home or self-care (01) ==
LOC: ED 14:47
DX: S61.212A Laceration without foreign body of right middle finger without damage to nail, initial encounter (principal); S60.031A Contusion of right middle finger without damage to nail, initial encounter; I10 Essential (primary) hypertension; K21.9 Gastro-esophageal reflux disease without esophagitis; E78.00 Pure hypercholesterolemia, unspecified; I48.91 Unspecified atrial fibrillation; Z88.8 Allergy status to other drugs, medicaments and biological substances; Z88.0 Allergy status to penicillin; Z90.49 Acquired absence of other specified parts of digestive tract; Z90.710 Acquired absence of both cervix and uterus; Z90.89 Acquired absence of other organs; Z98.890 Other specified postprocedural states; Z72.0 Tobacco use; W21.00XA Struck by hit or thrown ball, unspecified type, initial encounter; Y93.89 Activity, other specified; Y92.009 Unspecified place in unspecified non-institutional (private) residence as the place of occurrence of the external cause; Y99.8 Other external cause status

== ENCOUNTER → 2024-04-29 | Outpatient (CLI) | payer OTHER | END | disposition home or self-care (01) | LOC: CT 09:26 | PROVIDERS: ATTEND Internal Medicine Critical Care Medicine | DX: J43.9 Emphysema, unspecified (principal); R40.0 Somnolence; G25.81 Restless legs syndrome; G47.33 Obstructive sleep apnea (adult) (pediatric); I25.10 Atherosclerotic heart disease of native coronary artery without angina pectoris; K76.89 Other specified diseases of liver; R91.1 Solitary pulmonary nodule; Z87.891 Personal history of nicotine dependence; Z91.198 Patient's noncompliance with other medical treatment and regimen for other reason; Z68.36 Body mass index [BMI] 36.0-36.9, adult ==

== ENCOUNTER → 2024-06-21 | Outpatient (CLI) | payer OTHER | END | disposition home or self-care (01) | LOC: RAD 07:11 | PROVIDERS: ATTEND Internal Medicine | DX: Z13.820 Encounter for screening for osteoporosis (principal); M81.0 Age-related osteoporosis without current pathological fracture; Z78.0 Asymptomatic menopausal state; E55.9 Vitamin D deficiency, unspecified; I10 Essential (primary) hypertension ==

== ENCOUNTER → 2024-11-19 | Outpatient (CLI) | payer MEDICARE | END | disposition home or self-care (01) | LOC: US 07:17 | PROVIDERS: ATTEND Internal Medicine | DX: R22.32 Localized swelling, mass and lump, left upper limb (principal) ==

== ENCOUNTER → 2025-02-01 | Outpatient (CLI) | payer MEDICARE ==
[2025-02-01 07:20] LABS: BASO # 0.1 10*3/uL (0.0-0.1); BASO % 0.8 % (0.0-1.0); EOS # 0.5 10*3/uL (0.0-0.4); EOS % 5.1 % (1.0-4.0); HEMATOCRIT 45.4 % (37.0-47.0); MEAN CELL VOLUME 90.6 fl (81.0-99.0); MEAN CORPUSCULAR HGB 28.5 pg (27.0-31.0); MEAN CORPUSCULAR HGB CONC 31.5 g/dl (33.0-37.0); MEAN PLATELET VOLUME 10.1 fl (9.6-12.3); MONO % 9.4 % (3.0-9.0); NEUT # 7.2 10*3/uL (2.3-7.9); NEUT % 68.9 % (47.0-73.0); PLATELET COUNT AUTOMATED 235 10*3/uL (130-400); RED BLOOD COUNT 5.01 10*6/uL (4.10-5.10); RED CELL DISTRI WIDTH 13.2 % (0-14.5); WHITE BLOOD COUNT 10.4 10*3/uL (4.8-10.8)
[2025-02-01 07:30] LABS: ACT PARTIAL THROMBO TIME 27.6 SECONDS (20.0-32.1)
[2025-02-01 08:10] LABS: VITAMIN D, 25-HYDROXY 46.2 ng/mL (30-100)
[2025-02-01 08:12] LABS: ALKALINE PHOSPHATASE 76 U/L (46-116); BUN 11 mg/dl (9-23); CHLORIDE 103 mmol/L (98-107); CHOLESTEROL 134 mg/dL (<200); FREE T4 1.23 ng/dl (0.89-1.76); LDL CHOLESTEROL 76 mg/dL (9-159); POTASSIUM 4.8 mmol/L (3.4-5.1); SGPT/ALT 8 U/L (5-49); TOTAL PROTEIN 6.9 gm/dL (6.0-8.0); TRIGLYCERIDES 78 mg/dl (<150)
== END | disposition home or self-care (01) ==
LOC: LAB 07:02
PROVIDERS: Internal Medicine; ATTEND Nurse Practitioner Adult Health
DX: R94.39 Abnormal result of other cardiovascular function study (principal); I10 Essential (primary) hypertension; E78.2 Mixed hyperlipidemia; R53.83 Other fatigue; E55.9 Vitamin D deficiency, unspecified; E53.9 Vitamin B deficiency, unspecified; F17.210 Nicotine dependence, cigarettes, uncomplicated; Z79.01 Long term (current) use of anticoagulants

== ENCOUNTER → 2025-05-03 | Outpatient (CLI) | payer MEDICARE | END | disposition home or self-care (01) | LOC: LAB 07:03 | PROVIDERS: ATTEND Internal Medicine | DX: Z13.0 Encounter for screening for diseases of the blood and blood-forming organs and certain disorders involving the immune mechanism (principal) ==

== ENCOUNTER → 2025-05-04 | Outpatient (CLI) | payer MEDICARE ==
[~2025-05-04] MED LIST changes: +IOHEXOL 350 MG/ML 100 ML VIAL IV ONE; +SODIUM CHLORIDE 0.9% 100 ML BAG IV ONE; +SODIUM CHLORIDE 0.9% 100 ML IV ONE
== END | disposition home or self-care (01) ==
LOC: CT 05-02 08:00
PROVIDERS: ATTEND Internal Medicine
DX: T82.856A Stenosis of peripheral vascular stent, initial encounter (principal); I74.3 Embolism and thrombosis of arteries of the lower extremities; R94.30 Abnormal result of cardiovascular function study, unspecified; Y84.8 Other medical procedures as the cause of abnormal reaction of the patient, or of later complication, without mention of misadventure at the time of the procedure; Y92.89 Other specified places as the place of occurrence of the external cause

== ENCOUNTER → 2025-06-22 | Outpatient (CLI) | payer MEDICARE ==
[~2025-06-22] MED LIST changes: -IOHEXOL 350 MG/ML 100 ML VIAL IV ONE; -SODIUM CHLORIDE 0.9% 100 ML BAG IV ONE; -SODIUM CHLORIDE 0.9% 100 ML IV ONE
== END | disposition home or self-care (01) ==
LOC: RAD 09:57
PROVIDERS: ATTEND Internal Medicine
DX: R05.9 Cough, unspecified (principal)

== ENCOUNTER → 2025-09-14 | Outpatient (CLI) | payer MEDICARE | END | disposition home or self-care (01) | LOC: RAD 09:55 | PROVIDERS: ATTEND Internal Medicine | DX: I77.810 Thoracic aortic ectasia (principal); R06.02 Shortness of breath ==